=== PATIENT | male | born 1945 | race Caucasian/White ===

== ENCOUNTER 2020-04-19 09:02 | Emergency (ER) | payer MEDICARE, SELFPAY ==
--- NOTE | ~2020-04-19 | XR_ITS ---
XR chest 2V 04/19/2020 09:58 Indication: Syncope Procedure: AP and lateral views of the chest Comparison: Comparison to multiple prior studies sequentially, with oldest reviewed study dated 09/2012. Findings: Coarse interstitial changes of the lung periphery have progressed, likely pulmonary fibrosi s. No acute focal pneumonia, pleural effusion, edema or pneumothorax. No acute osseous abnormality. Impression: 1: Coarse interstitial changes primarily affecting the lung bases and periphery, likely pulmonary fib rosis. Reviewed, dictated and finalized at location B. Impression: 1: Coarse interstitial changes primarily affecting the lung bases and periphery , likely pulmonary fibrosis.
--- NOTE | ~2020-04-19 | CT_ITS ---
EXAMINATION: CT brain wo con EXAM DATE: 04/19/2020 09:57 INDICATION: Syncope. TECHNIQUE: Spiral CT of the head was performed without contrast. Axial, coronal and sagittal images were reviewed. The dose-length product (DLP) for this examination was 605.33 mGy-cm. The exposure w as tailored according to patient size, and iterative reconstruction (ASIR) was used as additional dos e reduction technique. There is no prior study for comparison. FINDINGS: There is no acute intraparenchymal hemorrhage. No evidence of intraparenchymal brain mass lesion. No evidence of acute infarction. Please note that initial head CT has limited sensitivity f or small or acute infarctions. There is mild periventricular and subcortical hypodensity, nonspecific but probably related to small vessel ischemic disease. There is moderate prominence of the sulci a nd ventricles related to cerebral atrophy. There is intracranial carotid arteriosclerosis. There a re no extra-axial collections. There is no mass effect or midline shift. Patient has had right-side d ocular lens surgery. Soft tissue is unremarkable. The visualized sinuses and mastoid air cells ar e well aerated. IMPRESSION: 1. No acute intracranial findings. 2. Chronic age related findings. Reviewed, dictated and finalized at location A.
[2020-04-19 09:08] VITALS: BP 120/74; PULSE 89; PULSE 93; RESP 18; TEMP 38; O2SAT 98
--- NOTE | 2020-04-19 09:20 | ECG_ITS ---
Measurements Intervals [place] Rate: 87 P: 31 [place]: 169 QRS: -21 QRSD: 93 T: -7 QT: 356 QTc: 430 Interpretive Statements SINUS RHYTHM VOLTAGE CRITERIA FOR LVH MINIMAL Q WAVES- HIGH LATERAL LEADS BORDERLINE ST-T WAVE ABNORMALITY- INFERIOR LEADS BORDERLINE ECG Electronically Signed On 04-19-2020 10:02:40 CDT by Anton Sorensen D.O.
[2020-04-19 09:42] LABS: Hematocrit 42.1 % (37.0-46.0); Hemoglobin 13.8 g/dL (12.4-15.3); Mean Corpuscular HGB Conc 32.8 g/dL (32.0-36.0); Mean Corpuscular Volume 100.7 fL (78.0-102.0); Platelet Count Result 161 K/mm3 (150-420); Red Blood Count 4.18 M/mm3 (4.70-6.10); Red Cell Distribution Width 12.9 % (11.6-14.4); White Blood Count 7.1 K/mm3 (4.8-10.8)
[2020-04-19] MEDS: SODIUM CHLORIDE 0.9% IV 1,000 ML 999 ML IV CONT (10:04)
[2020-04-19 10:05] LABS: Lactic Acid Reflex 1.5 mmol/L (0.4-2.0)
[2020-04-19 10:06] LABS: Alanine Aminotransferase 33 U/L (16-63); Albumin Level 3.7 g/dL (3.4-5.0); Alkaline Phosphatase 87 U/L (46-116); Anion Gap 6 mmol/L (8-16); Aspartate Amino Transferase 19 U/L (15-37); Bilirubin,Total 0.5 mg/dL (0.00-1.00); Blood Urea Nitrogen 9 mg/dL (7-18); Calcium 8.4 mg/dL (8.5-10.1); Carbon Dioxide 28 mmol/L (21-32); Chloride 105 mmol/L (98-108); Estimated CRCL calculation 52 ml/min; Estimated Glomerular Filt Rate > 60; Glucose 128 mg/dL (70-99); Osmolality Calculated 288 mOsm/kg (285-295); Potassium 3.9 mmol/L (3.5-5.1); Sodium 139 mmol/L (136-145); Thyroid Stimulating Hormone 0.32 uIU/mL (0.36-3.74); Total Protein 6.9 g/dL (6.4-8.2); Troponin I < 0.02 ng/mL (0.00-0.056)
[2020-04-19 10:17] LABS: Add Urine Microscopic? NO; Appearance Urine Clear (Clear); Bilirubin Urine Negative (Negative); Blood Urine Negative (Negative); Color Urine Yellow (Yellow); Glucose Urine UA Negative (Negative); Ketones Urine Negative (Negative); Leukocyte Esterase Ur Negative (Negative); Nitrate Urine Negative (Negative); Protein Urine Negative (Negative); Urobilinogen Urine 0.2 mg/dL (0.2-1.0); pH Urine 7.5 (5.0-8.0)
--- NOTE | 2020-04-19 10:30 | PC.NURSE ---
erp at bedside discussing test results and plan of care.
--- NOTE | 2020-04-19 10:31 | ED.SYNCOPE ---
HPI - Syncope General Chief Complaint: Syncope Stated Complaint: ambulance Source: patient and family History of Present Illness HPI narrative: This is a 74-year-old gentleman presents with a syncopal episode that occurred earlier this morning witnessed his lasting [id number] with no prodrome no headaches no formal history of seizures. Patient has a history of hyperlipidemia, BPH currently on finasteride. There was no seizure activity no loss of bowel or bladder function. Patient had no headaches no neck stiffness no chest pain or shortness of breath no abdominal pain no dysuria. MD complaint: loss of consciousness Onset (ago): minute(s) Duration of episode: 1 -: minutes(s) Prodromal symptoms: none Witnessed: Yes - by Bystander Context: getting out of bed Injuries sustained associated with event: none Current symptoms: none Treatments prior to arrival: none and IV fluids Related Data Home Medications Medication Instructions Recorded Confirmed aspirin 81 mg PO DAILY 04/19/20 04/19/20 atorvastatin 40 mg PO DAILY 04/19/20 04/19/20 diazepam 5 mg PO TID PRN 04/19/20 04/19/20 diclofenac sodium 75 mg PO BID 04/19/20 04/19/20 finasteride 5 mg PO DAILY 04/19/20 04/19/20 levothyroxine [Synthroid] 125 mcg PO DAILY 04/19/20 04/19/20 pantoprazole 40 mg PO DAILY 04/19/20 04/19/20 primidone 100 mg PO TID 04/19/20 04/19/20 terazosin 2 mg PO HS 04/19/20 04/19/20 Allergies Allergy/AdvReac Type Severity Reaction Status Date / Time No Known Allergies Allergy Verified 04/19/20 09:21 Review of Systems Review of Systems: All systems reviewed & are unremarkable except as noted in HPI and below PMFSH Past Medical History Medical History BPH (benign prostatic hyperplasia) HLD (hyperlipidemia) Exam Const: General: no acute distress Orientation/consciousness: patient oriented x3 HENMT: Head: normal to inspection Eyes: Conjunctivae: conjunctivae normal Pupils: Equal, round and reactive pupils present EOM: EOMs intact bilaterally Neck: Neck: normal visual inspection, no lymphadenopathy and no meningeal signs Chest: Chest palpation & inspection: normal inspection of the chest Resp: Effort & Inspection: normal respiratory effort Auscultation: clear to auscultation bilaterally Cardio: Rate: regular rate Rhythm: regular rhythm GI: Auscultation: normal bowel sounds : Testes: Testes normal Urinary Catheter: Urinary Catheter: urine clear Back/Spine/Pelvis: Back: no CVA tenderness Skin: General skin exam: normal color Rashes: no rashes Neuro: General: patient oriented x3, moves all extremities, no meningeal signs and no focal motor deficits Extrem: General: normal to inspection and no pedal edema Psych: Appearance: grossly normal Mental Status: mental status grossly normal Affect: normal affect Attitude: cooperative Thought content: Yes Normal thought content present Course Course Emergency Course: reassessment of patient currently stable no orthostatic findings blood pressure is stable with no headaches no nausea vomiting no blurry vision. Patient received some L of fluids, talk to family about follow-up primary care physician. Vital Signs Vital signs: Vital Signs Temperature 38.0 C H 04/19/20 09:08 Pulse Rate 89 04/19/20 09:08 Respiratory Rate 18 04/19/20 09:08 Blood Pressure 120/74 04/19/20 09:08 Pulse Oximetry 98 04/19/20 09:08 Temperature 38.0 C H 04/19/20 09:08 Pulse Rate 93 04/19/20 09:08 Respiratory Rate 18 04/19/20 09:08 Blood Pressure 120/74 04/19/20 09:08 Pulse Oximetry 98 04/19/20 09:08 MDM - Syncope Lab Data Result diagrams: 04/19/20 09:34 04/19/20 09:34 Labs: Lab Results 04/19/20 04/19/20 04/19/20 Range/Units 09:20 09:34 09:34 WBC 7.1 (4.8-10.8) K/mm3 RBC 4.18 L (4.70-6.10) M/mm3 Hgb 13.8 (12.4-15.3) g/dL Hct 42.1 (37.0-46.0
[2020-04-19 10:34] VITALS: BP 151/79; PULSE 88; RESP 16; TEMP 36.8; O2SAT 98
[2020-04-20 12:28] LABS: SARS-CoV-2 RNA PCR Negative
== END 2020-04-19 10:58 | disposition home or self-care (01) ==
PROVIDERS: Emergency Provider Emergency Medicine; PCP Internal Medicine
DX: R55 Syncope and collapse (principal); E78.5 Hyperlipidemia, unspecified
CPT/HCPCS: 36415; 70450; 71046; 80053; 81003; 83605; 84443; 84484; 85027; 87040; 87635; 93005; 96360; 99283; 99284; C9803; J7030; U0003

== ENCOUNTER 2020-04-23 11:43 | Outpatient (CLI) | payer MEDICARE, SELFPAY ==
[2020-04-23 11:58] LABS: Hematocrit 41.5 % (37.0-46.0); Hemoglobin 13.5 g/dL (12.4-15.3); Mean Corpuscular HGB Conc 32.5 g/dL (32.0-36.0); Mean Corpuscular Hemoglobin 32.5 pg (27.0-31.0); Mean Platelet Volume 8.3 fl (8.7-11.0); Platelet Count Result 190 K/mm3 (150-420); Red Blood Count 4.15 M/mm3 (4.70-6.10); Red Cell Distribution Width 12.8 % (11.6-14.4); White Blood Count 7.3 K/mm3 (4.8-10.8)
[2020-04-23 12:45] LABS: Alanine Aminotransferase 28 U/L (16-63); Albumin Level 3.7 g/dL (3.4-5.0); Alkaline Phosphatase 84 U/L (46-116); Anion Gap 9 mmol/L (8-16); Aspartate Amino Transferase 19 U/L (15-37); Bilirubin,Total 0.3 mg/dL (0.00-1.00); Blood Urea Nitrogen 8 mg/dL (7-18); Calcium 8.7 mg/dL (8.5-10.1); Carbon Dioxide 29 mmol/L (21-32); Chloride 103 mmol/L (98-108); Estimated Glomerular Filt Rate > 60; Glucose 158 mg/dL (70-99); Osmolality Calculated 293 mOsm/kg (285-295); Sodium 141 mmol/L (136-145); Total Protein 6.9 g/dL (6.4-8.2)
== END 2020-04-23 11:44 | disposition home or self-care (01) ==
LOC: CHSLAB 11:47
PROVIDERS: PCP Internal Medicine; Visit Provider Internal Medicine
DX: R19.7 Diarrhea, unspecified (principal)
CPT/HCPCS: 36415; 80053; 85027; 87045; 87046; 87324; 87427

== ENCOUNTER 2021-11-25 09:49 | Emergency (ER) | payer MEDICARE, SELFPAY ==
--- NOTE | ~2021-11-25 | XR_ITS ---
EXAMINATION: XR chest 2V DATE: 11/25/2021 10:28 INDICATION: Shortness of breath. TECHNIQUE: Frontal and lateral views of the chest were obtained. COMPARISON: Chest 2 views 04/19/2020, neck CT 08/20/2017 FINDINGS: The lung volumes are normal. There are chronic peripheral reticular opacities in the lungs with a lower lung predominance. No pleural effusion or pneumothorax. The heart size is normal. There are surgical clips in the neck from thyroidectomy. IMPRESSION: 1. Stable chronic interstitial lung disease. Reviewed, dictated and finalized at location A.
--- NOTE | ~2021-11-25 | CT_ITS ---
EXAMINATION: CTA chest PE protocol DATE: 11/25/2021 11:44 INDICATION: Shortness of breath. TECHNIQUE: Computed tomography angiography (CTA) of the chest was performed with 100 mL Omnipaque-350 intravenous contrast timed to evaluate the pulmonary arteries. Coronal maximum intensity projection 3D-reconstructions were created by the technologist. Automated exposure control and iterative reconst ruction technique were employed. The dose-length product was 328.64 mGy-cm. COMPARISON: Chest 2 views 11/25/2021 FINDINGS: There is widespread peripheral septal thickening in the lungs with a lower lung predominanc e associated with mild groundglass opacities. No bronchiectasis. A calcified right lung nodule and ca lcified right hilar lymph node are consistent with old granulomatous disease. No pleural effusion. Th ere are changes of thyroidectomy. Cardiomegaly is noted. No pericardial effusion. There is no pulmona ry embolus. Calcifications in the spleen are consistent with old granulomatous disease. There is zora re thoracic spondylosis. IMPRESSION: 1. No pulmonary embolus. 2. Chronic interstitial lung disease in a pattern of usual interstitial pneumonia (UIP). Reviewed, dictated and finalized at location A. IMPRESSION: 1. No pulmonary embolus. 2. Chronic interstitial lung disease in a pattern of usual interstitial pneumon ia (UIP).
--- NOTE | 2021-11-25 10:10 | ECG_ITS ---
Measurements Intervals [place] Rate: 64 P: 28 CT: 206 QRS: -27 QRSD: 98 T: -13 QT: 402 QTc: 418 Interpretive Statements SINUS RHYTHM BORDERLINE LEFT AXIS DEVIATION [QRS AXIS < -20] VOLTAGE CRITERIA FOR LVH [MEETS CRITERIA IN ONE OF: R(aVL), S(V1), R(V5), R(V5/V6)+S(V1)] NO PREVIOUS ECG AVAILABLE FOR COMPARISON Electronically Signed On 11-25-2021 16:59:06 CDT by Dave Arreola M.D.
[2021-11-25 10:14] VITALS: BP 137/80; PULSE 72; RESP 20; TEMP 36.7; O2SAT 99
--- NOTE | 2021-11-25 10:18 | ED.SOB ---
HPI - SOB/Dyspnea General Chief Complaint: Shortness of Breath/Dyspnea Stated Complaint: SOB, pain in legs and back, shaky Source: patient and family Mode of arrival: ambulatory Limitations: no limitations History of Present Illness HPI Narrative: this is a 76-year-old gentleman with history of central tremors had recently started as medication from his primary care physician that was discontinued because of 3 week episode of diarrhea, the diarrhea has improved over the last 2 to 3 days after he discontinued the medication for the tremors. The patient presents with shortness of breath satting 99% room air no history of asthma or COPD no chest pain no abdominal pain no dysuria no flank pain no fever chills. MD elicited complaint: shortness of breath Onset (ago): hour(s) Timing: constant Severity: mild Exacerbating factors: nothing Relieving factors: nothing Related Data Home Medications Medication Instructions Recorded Confirmed atorvastatin 40 mg PO DAILY 11/25/21 11/25/21 diazepam 5 mg PO DAILY PRN 11/25/21 11/25/21 finasteride 5 mg PO DAILY 11/25/21 11/25/21 levothyroxine 125 mcg PO DAILY 11/25/21 11/25/21 pantoprazole 40 mg PO DAILY 11/25/21 11/25/21 primidone 50 mg PO TID PRN 11/25/21 11/25/21 sertraline 100 mg PO DAILY 11/25/21 11/25/21 tamsulosin 0.4 mg PO DAILY 11/25/21 11/25/21 Allergies Allergy/AdvReac Type Severity Reaction Status Date / Time No Known Allergies Allergy Verified 11/25/21 10:29 Review of Systems Review of Systems: All systems reviewed & are unremarkable except as noted in HPI and below PMFSH Past Medical History Medical History Anxiety Tremor Exam Const: General: no acute distress Orientation/consciousness: patient oriented x3 HENMT: Head: normal to inspection Eyes: Conjunctivae: conjunctivae normal Pupils: Equal, round and reactive pupils present Neck: Neck: normal visual inspection, no lymphadenopathy and no meningeal signs Chest: Chest palpation & inspection: normal inspection of the chest Resp: Effort & Inspection: normal respiratory effort Auscultation: clear to auscultation bilaterally Cardio: Rate: regular rate Rhythm: regular rhythm GI: GI Palp: Yes Soft to palpation Percussion: Yes normal to percussion : Testes: Testes normal Urinary Catheter: Urinary Catheter: patent and draining Back/Spine/Pelvis: Back: no CVA tenderness Skin: Rashes: no rashes Neuro: General: patient oriented x3, moves all extremities, no meningeal signs and no focal motor deficits Extrem: General: normal to inspection and no pedal edema Psych: Mental Status: mental status grossly normal Affect: Anxious affect present Course Course Emergency Course: patient had chest x-ray that was reviewed as well as an EKG and blood work, patient with episodes of diarrhea will start IV and give the patient IV fluids, labs reviewed with patient and family. Patient appears anxious and will give a dose of Xanax. Critical Care Time Critical Care Time Critical Care Time: No Discharge Plan Discharge Clinical Impression: Anxiety Patient Disposition: Home, Self-Care Condition: Stable Instructions: Antibiotic Form, Anxiety (ED) Additional Instructions: follow-up with primary care physician within 1 week further evaluation and treatment, can take medication as needed. Prescriptions: New alprazolam [Xanax] 0.5 mg tablet 0.5 mg PO TID PRN (Reason: anxiety) Qty: 20 RF: 0 No Action atorvastatin 40 mg tablet 40 mg PO DAILY RF: 0 primidone 50 mg tablet 50 mg PO TID PRN (Reason: restless legs) RF: 0 sertraline 100 mg tablet 100 mg PO DAILY RF: 0 tamsulosin 0.4 mg capsule 0.4 mg PO DAILY RF: 0 pantoprazole 40 mg tablet,delayed release (DR/EC) 40 mg PO DAILY RF: 0 levothyroxine 125 mcg tablet 125 mcg PO DAILY RF: 0 finasteride 5 mg tablet 5 mg PO DAILY RF: 0 diazepam 5 m
[2021-11-25 10:35] LABS: Basophils Absolute Auto 0.03 K/mm3 (0.00-0.10); Basophils Percent Auto 0.4 % (0.0-1.0); Eosinophils Absolute Auto 0.08 K/mm3 (0.02-0.50); Eosinophils Percent Auto 1.1 % (1.0-6.0); Hemoglobin 13.3 g/dL (12.4-15.3); Immature Granulocyte Absolute 0.05 K/mm3 (0.00-0.00); Immature Granulocyte Percent A 0.7 % (0.0-0.0); Lymphocytes Absolute Auto 1.65 K/mm3 (1.10-4.50); Lymphocytes Percent Auto 21.7 % (18.0-42.0); Mean Corpuscular HGB Conc 34.1 g/dL (32.0-36.0); Mean Corpuscular Hemoglobin 33.1 pg (27.0-31.0); Monocytes Absolute Auto 0.72 K/mm3 (0.10-0.90); Monocytes Percent Auto 9.5 % (2.0-11.0); Neutrophils Absolute Auto 5.1 K/mm3 (1.7-7.2); Neutrophils Percent Auto 66.6 % (50.0-70.0); Platelet Count Result 226 K/mm3 (150-420); Red Blood Count 4.02 M/mm3 (4.70-6.10); Red Cell Distribution Width 12.6 % (11.6-14.4); White Blood Count 7.6 K/mm3 (4.8-10.8)
[2021-11-25] MEDS: ALPRAZolam (*CRX) 0.5 MG TABLET PO (10:39)
[2021-11-25] MEDS: SODIUM CHLORIDE 0.9% IV 1,000 ML 999 ML IV CONT (10:39)
[2021-11-25 10:51] LABS: D Dimer 0.75 mg/L (0.19-0.50)
[2021-11-25 11:00] LABS: Alanine Aminotransferase 36 U/L (16-63); Albumin Level 3.8 g/dL (3.4-5.0); Alkaline Phosphatase 80 U/L (46-116); Anion Gap 10 mmol/L (8-16); Aspartate Amino Transferase 19 U/L (15-37); Bilirubin,Total 0.4 mg/dL (0.00-1.00); Blood Urea Nitrogen 11 mg/dL (7-18); Calcium 9.4 mg/dL (8.5-10.1); Carbon Dioxide 25 mmol/L (21-32); Chloride 98 mmol/L (98-108); Estimated CRCL calculation 54 ml/min; Estimated Glomerular Filt Rate > 60; Glucose 97 mg/dL (70-99); Osmolality Calculated 275 mOsm/kg (285-295); Potassium 4.1 mmol/L (3.5-5.1); Sodium 133 mmol/L (136-145); Total Protein 7.2 g/dL (6.4-8.2); Troponin I 6.5 ng/L (0.00-60.4)
[2021-11-25 12:32] VITALS: BP 140/81; PULSE 73; RESP 20; TEMP 36.7; O2SAT 98
== END 2021-11-25 12:35 | disposition home or self-care (01) ==
PROVIDERS: Emergency Provider Emergency Medicine; PCP Internal Medicine
DX: F41.9 Anxiety disorder, unspecified (principal)
CPT/HCPCS: 36415; 71046; 71275; 80053; 84484; 85025; 85380; 93005; 96360; 99284; A9270; J7030; Q9967

== ENCOUNTER 2023-05-11 15:22 | Outpatient (CLI) | payer MEDICARE, SELFPAY ==
--- NOTE | ~2023-05-11 | XR_ITS ---
EXAMINATION: XR chest 2V Exam Date/Time: 05/11/2023 15:40 CDT HISTORY: SOB X 1 MONTH Comparison: 11/25/2021; CTPA 11/25/2021. RESULT: Lines, tubes, and devices: None. Lungs and pleura: Moderate peripheral reticular opacities. No focal consolidation, pleural effusion, or pneumothorax. Cardiomediastinal silhouette: Stable. Other: No acute osseous or upper abdominal finding. IMPRESSION: Chronic interstitial lung disease. Reviewed, dictated and finalized at location K.
--- NOTE | ~2023-05-11 | CT_ITS ---
EXAMINATION: CTA chest PE protocol DATE: 05/11/2023 17:12 INDICATION: SOB / + D-Dimer TECHNIQUE: Computed tomography angiography (CTA) of the chest was performed with 100 mL Omnipaque-350 intravenous contrast timed to evaluate the pulmonary arteries. Coronal maximum intensity projection 3D-reconstructions were created by the technologist. The dose-length product (DLP) was 420.05 mGy-cm. Automated exposure control and iterative reconstruction technique were employed. COMPARISON: X-ray chest, same date; CTPA 11/25/2021. FINDINGS: Lung parenchyma and airways: Lobular 5.4 x 3.4 cm soft tissue mass in the medial left upper lobe. 8 a nd 9 mm peripheral nodules in the right lower lobe. Moderate peripheral reticulation. Pleura: Unremarkable. Thoracic inlet, axillae and chest wall: Mild symmetric gynecomastia. Thoracic aorta: Normal. Mediastinum: Calcified right hilar and mediastinal lymph nodes. Dilated central pulmonary arteries as can be seen with pulmonary arterial hypertension. Heart and pericardium: Normal. Coronary artery calcifications: Mild. Upper abdomen: No significant finding. Bones: No acute osseous finding. Pulmonary arteries: Study quality: Adequate. No pulmonary emboli detected. IMPRESSION: No CT evidence of acute pulmonary embolus. 5.4 cm medial left upper lobe mass concerning for neoplastic disease. Multiple pulmonary nodules also noted. UIP pattern of chronic interstitial lung disease. Reviewed, dictated and finalized at location K.
--- NOTE | 2023-05-11 15:36 | ECG_ITS ---
Measurements Intervals [place] Rate: 60 P: 47 MT: 222 QRS: -23 QRSD: 97 T: 14 QT: 397 QTc: 397 Interpretive Statements SINUS RHYTHM WITH FIRST DEGREE AV BLOCK BORDERLINE LEFT AXIS DEVIATION [QRS AXIS < -20] VOLTAGE CRITERIA FOR LVH [MEETS CRITERIA IN ONE OF: R(aVL), S(V1), R(V5), R(V5/V6)+S(V1)] ABNORMAL ECG COMPARED TO ECG 04/19/2020 09:12:41 FIRST DEGREE AV BLOCK NOW PRESENT Electronically Signed On 05-13-2023 10:25:49 CDT by Tho Sandoval M.D.
[2023-05-11 15:50] LABS: Basophils Absolute Auto 0.04 K/mm3 (0.00-0.10); Basophils Percent Auto 0.5 % (0.0-1.0); Eosinophils Absolute Auto 0.11 K/mm3 (0.02-0.50); Eosinophils Percent Auto 1.3 % (1.0-6.0); Hematocrit 40.8 % (37.0-46.0); Hemoglobin 13.2 g/dL (12.4-15.3); Immature Granulocyte Absolute 0.05 K/mm3 (0.00-0.00); Immature Granulocyte Percent A 0.6 % (0.0-0.0); Lymphocytes Absolute Auto 1.46 K/mm3 (1.10-4.50); Lymphocytes Percent Auto 17.7 % (18.0-42.0); Mean Corpuscular HGB Conc 32.4 g/dL (32.0-36.0); Mean Corpuscular Hemoglobin 32.4 pg (27.0-31.0); Mean Platelet Volume 8.6 fl (8.7-11.0); Monocytes Percent Auto 7.3 % (2.0-11.0); Neutrophils Percent Auto 72.6 % (50.0-70.0); Platelet Count Result 230 K/mm3 (150-420); Red Blood Count 4.08 M/mm3 (4.70-6.10); Red Cell Distribution Width 13.2 % (11.6-14.4); White Blood Count 8.3 K/mm3 (4.8-10.8)
[2023-05-11 16:04] LABS: D Dimer 0.81 mg/L (0.19-0.50)
[2023-05-11 16:12] LABS: Alanine Aminotransferase 25 U/L (16-63); Albumin Level 3.3 g/dL (3.4-5.0); Alkaline Phosphatase 92 U/L (46-116); Anion Gap 12 mmol/L (8-16); Aspartate Amino Transferase 14 U/L (15-37); Bilirubin,Total 0.3 mg/dL (0.00-1.00); Blood Urea Nitrogen 16 mg/dL (7-18); Carbon Dioxide 23 mmol/L (21-32); Chloride 102 mmol/L (98-108); Creatine Kinase 57 U/L (39-308); Estimated Glomerular Filt Rate > 60; Glucose 111 mg/dL (70-99); NT Pro B Type Natriuretic Pept 510 pg/mL (0-450); Osmolality Calculated 286 mOsm/kg (285-295); Potassium 3.8 mmol/L (3.5-5.1); Sodium 137 mmol/L (136-145); Total Protein 7.2 g/dL (6.4-8.2); Troponin I 4.6 ng/L (0.00-60.4)
== END 2023-05-11 15:23 | disposition home or self-care (01) ==
PROVIDERS: PCP Internal Medicine; Visit Provider Internal Medicine
DX: R06.00 Dyspnea, unspecified (principal); R07.9 Chest pain, unspecified; R91.8 Other nonspecific abnormal finding of lung field; J84.9 Interstitial pulmonary disease, unspecified; R94.31 Abnormal electrocardiogram [ECG] [EKG]; I44.30 Unspecified atrioventricular block
CPT/HCPCS: 36415; 71046; 71275; 80053; 82550; 82553; 83880; 84484; 85025; 85380; 93005; Q9967

== ENCOUNTER 2023-05-28 07:17 | Outpatient (CLI) | payer MEDICARE, SELFPAY ==
--- NOTE | ~2023-05-28 | PE_ITS ---
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 TECHNIQUE: Blood glucose level was 110 mg/dL. 10.239 mCi of 18-fluorodeoxyglucose (18-FDG) was admini stered i.v. Low dose computed tomography (CT) images were acquired from the base of the brain to the proximal thighs for attenuation correction and anatomic localization. Positron emission tomography (P ET) images were acquired in the same distribution beginning 67 minutes after injection. Images includ ing fused PET/CT images were reconstructed in axial, coronal, and sagittal planes. Automated exposure control technique was employed. The dose-length product was 723.60mGy-cm. COMPARISON: Chest CT dated 05/21/2023 FINDINGS: Head/neck: There is symmetric increased activity in the oral cavity, lingual and palatine tonsils, submandibular glands, laryngeal muscles and ocular muscles without CT correlate, likely physiologic. No pathologic ally enlarged cervical lymphadenopathy or suspicious foci of increased FDG uptake in the visualized h ead or neck. Chest: Diffuse bilateral irregular septal line thickening with honeycombing in the periphery of both lungs w ith lower lung predominance consistent with usual interstitial pneumonia (UIP) pattern chronic inters titial lung disease. There is a 4.9 x 3.6 cm lobular FDG avid mass at the medial anterior segment of the left upper lobe which invades into the mediastinal fat. The maximal SUV is 10.1. Cardiomegaly. No pericardial effusion. Thoracic aorta is normal in caliber. Calcified right hilar and mediastinal lym ph nodes consistent with old granulomatous disease. There are few small lymph nodes which remain with in normal limits in size and without evident increased FDG uptake at the AP window. 11 x 7 mm FDG betty d though based FDG avid nodule near the posterior margin of the aorta at the level of T10 suspicious for metastatic disease. Abdomen/pelvis/proximal thighs: There is a 3.8 x 2.5 cm left paraspinal FDG avid mass at the level of T12-L1 with maximal SUV of 11.3 along the left posterior jazmin of the diaphragm likely representing a pleural deposit at the caudal-m ost aspect of the posterior sulcus. Physiologic renal accumulation and excretion of FDG activity in t he kidneys, bladder and along portions of ureters. Normal degree and heterogenous pattern of increase d uptake throughout the liver without radiologic correlate or dominant FDG avid lesion. The gallbladd er, pancreas and bilateral adrenal glands are normal. Splenic calcifications consistent with old gran ulomatous disease. Postoperative change of prior appendectomy with surgical clips along the tip the c ecum. Mild to moderate uptake scattered throughout the bowels without radiologic correlate, also like ly physiologic. Numerous diverticula along the descending and sigmoid colon without adjacent from tra ce stranding to suggest diverticulitis. Postoperative change of prior right inguinal hernia repair. L jo-ann dropped clip along the left posterior dome of the bladder. No other abnormal foci of increased FDG uptake or pathologically enlarged lymphadenopathy in the abdomen, pelvis or proximal thighs. Musculoskeletal: Severe cervical and lumbar spondylosis with moderate thoracic spondylosis. 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 No suspicious lytic, blastic or FDG avid bone lesions. IMPRESSION: 1. 4.9 x 3.6 cm lobular FDG avid mass at the anterior segment of the left upper lobe which appears to invade the anterior mediastinal fat. 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 Recommend CT-guided percutaneous biopsy of the paraspinal mass at the level of T12-L1.
[2023-05-28 07:54] LABS: Glucose Point of Care 110 mg/dl (65-105)
== END 2023-05-28 07:18 | disposition home or self-care (01) ==
PROVIDERS: PCP Internal Medicine; Visit Provider Internal Medicine
DX: D38.1 Neoplasm of uncertain behavior of trachea, bronchus and lung (principal)
CPT/HCPCS: 78815; A9552

== ENCOUNTER 2023-06-01 08:14 | Outpatient (CLI) | payer MEDICARE, SELFPAY ==
--- NOTE | 2023-06-01 08:30 | EST_ITS ---
Patient Info Name: Wayne Lau Age: 78 years : 1945 Gender: Male Ht: 69 in Wt: 156 lbs BSA: 1.86 m2 HR: 59 bpm BP: 126 / 66 mmHg Heart Rhythm: Bradycardia Technical Quality: Good Exam Date: 06/01/2023 9:29 AM Exam Location: [facility] Patient Status: Outpatient Admit Date: 06/01/2023 Staff Ordering Physician: Hiwot Marshall MD Attending Provider: Hiwot Marshall MD Exam Type: CA stress mary anne w NM Study Info A regadenoson stress test was performed. History/Risk Factors Dyslipidemia: Yes History/Risk Factors Cardiac heart failure. Malignancy. Summary 1. 1. Negative lexiscan stress test for ischemic ST changes by ECG criteria. 2. 2. Stable hemodynamics throughout the test. 3. 3. Nuclear scan to follow and will be reported separately. Please correlate with it. Protocol: LEXISCAN Stress ECG Details Stage: REST Duration (min): 5 min : 7 sec HR (bpm): 59 SBP (mmHg): 126 DBP (mmHg): 66 Stage: REST Duration (min): 6 min : 13 sec HR (bpm): 59 SBP (mmHg): 126 DBP (mmHg): 66 Stage: STAGE 1 Duration (min): 0 min : 14 sec HR (bpm): 60 SBP (mmHg): 126 DBP (mmHg): 66 Stage: RECOVERY Duration (min): 0 min : 45 sec HR (bpm): 85 SBP (mmHg): 126 DBP (mmHg): 66 Stage: RECOVERY Duration (min): 1 min : 45 sec HR (bpm): 85 SBP (mmHg): 125 DBP (mmHg): 64 Stage: RECOVERY Duration (min): 2 min : 45 sec HR (bpm): 83 SBP (mmHg): 124 DBP (mmHg): 66 Stage: RECOVERY Duration (min): 3 min : 45 sec HR (bpm): 76 SBP (mmHg): 123 DBP (mmHg): 67 Stage: RECOVERY Duration (min): 4 min : 45 sec HR (bpm): 73 SBP (mmHg): 109 DBP (mmHg): 65 Stage: RECOVERY Duration (min): 5 min : 17 sec HR (bpm): 71 SBP (mmHg): 109 DBP (mmHg): 65 Rest HR: 59 bpm Peak HR: 92 bpm Rest Sys BP: 126 mmHg Peak Sys BP: 125 mmHg Max Pred HR: 140 bpm % Max Pred HR: 66 % Target HR: 119 bpm Max RPP: 11,500 bpm*mmHg BP Response: Normal blood pressure response Termination Reason: Completed Protocol Cardiac Symptoms: None Total Time: 0 min : 14 sec Rest Desouza BP: 66 mmHg Peak Desouza BP: 64 mmHg Total Dose: 0.4 mg Resting ECG Sinus bradycardia with borderline 1st degree AV block. Occasional PVCs. Stress ECG No abnormal ST/T wave changes. Arrhythmias Occasional PVCs. Report Signatures
--- NOTE | 2023-06-01 13:35 | WPDCARIOSTRE ---
Nuclear Stress Test INDICATIONS Indications: Dyspnea PROCEDURE Procedure Performed: Myocardial Perf Spect-Multi Procedure: Patient underwent a lexiscan stress test and immediately was injected with 33 mCi of cardiolyte. Multiple tomographic images were obtained. These are of good quality. There is evidence of a small size, mild anterior perfusion defect with stress imaging. A separate resting images were obtained after patient was injected with 10.4 mCi of cardiolyte. Multiple tomographic images were obtained. These are of good quality. There is evidence of a small size, mild anterior perfusion defect with rest imaging. CONCLUSION Conclusion: 1. Myocardial perfusion imaging demonstrating a fixed small size anterior perfusion defect consistent with breast attenuation artifact. 2. No evidence of reversible ischemia. 3. Left ventriculogram demonstrates normal measured ejection fraction of 57% with no wall motion abnormalities. 4. TID score 1.04 is normal.
--- NOTE | 2023-06-01 14:49 | ECHO_ITS ---
Patient Info Name: Wayne Lau Age: 78 years : 1945 Gender: Male Ht: 69 in Wt: 154 lbs BSA: 1.85 m2 HR: 58 bpm BP: 113 / 58 mmHg Heart Rhythm: Sinus Rhythm Technical Quality: Good Exam Date: 06/01/2023 2:38 PM Exam Location: [facility] Patient Status: Outpatient Admit Date: 06/01/2023 Staff Ordering Physician: Hiwot Marshall MD Turf [employer] Worker: Ulises Saldivar RDCS Attending Provider: Hiwot Marshall MD Referring Physician: Rolando MIRZA; Exam Type: CA echo doppler color flow Study Info Indications - DYSPNEA, CHF, LUNG MASS Complete two-dimensional, color flow and Doppler transthoracic echocardiogram is performed. History/Risk Factors Dyslipidemia: Yes Summary 1. Complete two-dimensional, color flow and Doppler transthoracic echocardiogram is performed. 2. Left ventricular chamber dimension is normal. 3. Left ventricular systolic function is normal, estimated at 55-60%. 4. There is mild concentric increased left ventricular wall thickness. 5. The left ventricular diastolic function is grade I diastolic dysfunction. 6. E/e' 5 is not elevated. 7. Left atrial chamber dimension is mildly enlarged. 8. There is mild aortic valve sclerosis. 9. There is mild aortic valve regurgitation. 10. There is mild mitral valve regurgitation. 11. There is mild tricuspid valve regurgitation. 12. No pulmonary hypertension, estimated pulmonary arterial systolic pressure is 34 mmHg. 13. There is trace pulmonic regurgitation. Left Ventricle E/e' 5 is not elevated. Left ventricular chamber dimension is normal. Left ventricular systolic function is normal, estimated at 55-60%. There is mild concentric increased left ventricular wall thickness. The left ventricular diastolic function is grade I diastolic dysfunction. Right Ventricle Right ventricular chamber dimension is normal. Right ventricular systolic function is normal. Left Atria Left atrial chamber dimension is mildly enlarged. Right Atria Right atrial chamber dimension is normal. Aortic Valve The aortic valve is trileaflet. There is mild aortic valve sclerosis. There is no aortic valve stenosis. There is mild aortic valve regurgitation. Pulmonic Valve There is trace pulmonic regurgitation. Mitral Valve There is no mitral valve stenosis. There is mild mitral valve regurgitation. Tricuspid Valve There is mild tricuspid valve regurgitation. No pulmonary hypertension, estimated pulmonary arterial systolic pressure is 34 mmHg. Pericardium/Pleural There is no pericardial effusion. Inferior Vena Cava Normal inferior vena cava with >50% collapse upon inspiration consistent with normal right atrial pressure, 5 mmHg. Aorta The aortic root size at the sinus of Valsalva is normal. Left Ventricular Outflow Tract Name Value Normal LVOT 2D LVOT Diameter 2.2 cm LVOT Doppler LVOT Peak Velocity 78 cm/s LVOT Peak Gradient 2 mmHg LVOT Mean Gradient 1 mmHg LVOT VTI 17 cm LVOT VTI/AV VTI Ratio 0.7 LVOT Stroke Volume 61 ml Pulmonic Valve
== END 2023-06-01 08:15 | disposition home or self-care (01) ==
PROVIDERS: PCP Internal Medicine; Visit Provider Internal Medicine
DX: R06.00 Dyspnea, unspecified (principal); R91.8 Other nonspecific abnormal finding of lung field; I50.9 Heart failure, unspecified; I08.3 Combined rheumatic disorders of mitral, aortic and tricuspid valves
CPT/HCPCS: 78452; 93017; 93306; A9502

== ENCOUNTER 2023-06-02 08:20 | Outpatient (CLI) | payer MEDICARE, SELFPAY | END 2023-06-02 08:21 | disposition home or self-care (01) | LOC: CHSCARD 08:22 | PROVIDERS: PCP Internal Medicine; Visit Provider Internal Medicine | DX: R06.00 Dyspnea, unspecified (principal); R91.8 Other nonspecific abnormal finding of lung field; I50.9 Heart failure, unspecified | CPT/HCPCS: 94060; 94726; 94729; 95012 ==

== ENCOUNTER 2023-06-23 10:08 | Outpatient (CLI) | payer MEDICARE, SELFPAY ==
--- NOTE | ~2023-06-23 | XR_ITS ---
XR chest 2V 06/23/2023 10:36 Indication: History of lung cancer. Procedure: 2 view chest Comparison: Comparison to multiple prior studies sequentially, with oldest reviewed study dated 06/04. Findings: Heart size normal. Coarse interstitial changes are present peripherally, consistent with ch ronic interstitial lung disease. There is evidence for chronic granulomatous disease in the mediastin um. Possible small left effusion. Impression: 1: Possible small left effusion. 2: Chronic interstitial lung disease. Reviewed, dictated and finalized at location L. IRATORY MEDICINE PHYSICIAN Impression: 1: Possible small left effusion. 2: Chronic interstitial lung disease.
--- NOTE | ~2023-06-23 | CT_ITS ---
EXAMINATION: CT cervical spine wo con DATE: 06/23/2023 10:27 INDICATION: Left flank pain. TECHNIQUE: Computed tomography (CT) of the cervical spine was performed without intravenous contrast. Automated exposure control and iterative reconstruction technique were employed. The dose-length pro duct was 202.88 mGy-cm. COMPARISON: None FINDINGS: There are changes of thyroidectomy. There is 8 degrees dextrocurvature of cervical spine. T here is 2 mm anterolisthesis of C3 on C4. There is a hemangioma in C6 vertebral body. There is mildly decreased disc height at C3-C4 and severely decreased disc height at C4-C5, C5-C6, and C6-C7. The fo llowing disc levels are specifically discussed: C2-C3: There is no uncovertebral joint osteoarthritis. There is mild right and severe left facet join t osteoarthritis. There is no neural foraminal stenosis. There is no central canal stenosis. C3-C4: There is mild right and severe left uncovertebral joint osteoarthritis. There is severe bilate ral facet joint osteoarthritis. There is mild right and moderate left neural foraminal stenosis. Ther e is no central canal stenosis. C4-C5: There is moderate right and severe left uncovertebral joint osteoarthritis. There is severe bi lateral facet joint osteoarthritis. There is mild bilateral neural foraminal stenosis. There is mild central canal stenosis. C5-C6: There is mild right and severe left uncovertebral joint osteoarthritis. There is moderate bila teral facet joint osteoarthritis. There is moderate left neural foraminal stenosis. There is mild devendra tral canal stenosis. C6-C7: There is severe right and mild left uncovertebral joint osteoarthritis. There is mild right an d severe left facet joint osteoarthritis. There is mild bilateral neural foraminal stenosis. There is mild central canal stenosis. C7-T1: There is no uncovertebral joint osteoarthritis. There is moderate and severe left facet joint osteoarthritis. There is mild left neural foraminal stenosis. There is no central canal stenosis. IMPRESSION: 1. Severe cervical spondylosis. Reviewed, dictated and finalized at location E. LANE WOODWORKER
== END 2023-06-23 10:09 | disposition home or self-care (01) ==
PROVIDERS: PCP Internal Medicine; Visit Provider Internal Medicine
DX: M54.12 Radiculopathy, cervical region (principal); Z85.118 Personal history of other malignant neoplasm of bronchus and lung; J84.9 Interstitial pulmonary disease, unspecified; M43.02 Spondylolysis, cervical region
CPT/HCPCS: 71046; 72125

== ENCOUNTER 2024-02-15 10:56 | Outpatient (CLI) | payer MEDICARE, SELFPAY ==
--- NOTE | ~2024-02-15 | XR_ITS ---
XR hip BI 2V w AP pelvis Ordering provider: Hiwot Marshall MD History: . LUNG CANCER ON CHEMO/AUTE PAIN LOWER BACK/HIP,LT>RT . Comparison: None. FINDINGS: BONES: No acute fracture or dislocation. HIP JOINT SPACES: Normal. SACROILIAC JOINT SPACES/LUMBAR SPINE: The sacroiliac joint spaces are normal. Mild degenerative cheng es of the visualized lower lumbar spine. PUBIC SYMPHYSIS: Mild pubic symphysitis. SOFT TISSUES: Normal. IMPRESSION: No acute osseous abnormality of the bilateral hips and pelvis. Reviewed, dictated and finalized at location A.
--- NOTE | ~2024-02-15 | XR_ITS ---
XR shoulder LT min 2V Ordering provider: Hiwot Marshall MD History: . LUNG CANCER ON CHEMO/AUTE PAIN LEFT SHOULDER . Comparison: None. FINDINGS: BONES: No acute fracture or dislocation. JOINT SPACES: The acromioclavicular joint shows osteoarthritic changes. The glenohumeral joint shows mild osteoarthritic changes. SOFT TISSUES: Ossification of the insertion of the supraspinatous muscle. IMPRESSION: No acute osseous abnormality left shoulder. Reviewed, dictated and finalized at location A.
--- NOTE | ~2024-02-15 | XR_ITS ---
3 VIEWS LUMBAR SPINE Ordering provider: Hiwot Marshall MD History: . LUNG CANCER ON CHEMO/AUTE PAIN LOWER BACK/HIP . Comparison: None. FINDINGS: VERTEBRAL BODIES:Degenerative changes of the spine. No visible fracture. Minimal anterolisthesis at the level of L5-S1.. DISK SPACES: Narrowing of the disc L2-L3, L3-L4, L4-L5 and L5-S1. Multilevel facet joint disease. SOFT TISSUES: Atherosclerotic changes of the aorta. IMPRESSION: No acute osseous abnormality lumbar spine. Anterolisthesis at the level of L5-S1. Multilevel degenerative disc disease. Reviewed, dictated and finalized at location A.
--- NOTE | ~2024-02-15 | XR_ITS ---
EXAMINATION: XR chest 2V DATE: 02/15/2024 11:26 INDICATION: Lung cancer currently on chemotherapy presenting with shortness of breath and weakness TECHNIQUE: PA and lateral views of the chest were obtained. COMPARISON: Chest radiograph dated 06/23/[address] dated 05/21/2023 FINDINGS: Right internal jugular central venous port catheter with distal tip in the caudal superior vena cava. Decreased lung volumes particularly on the left where there is elevation the left hemidiaphragm. 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 No more dense airspace consolidation, pleural effusion or pneumothorax. Heart size is normal. Calc ified right hilar lymph nodes consistent with old granulomatous disease. IMPRESSION: 1. Decreased lung volumes with stable appearance of a diffuse peripheral interstitial pattern consist ent with chronic interstitial lung disease with UIP pattern on prior CT. Reviewed, dictated and finalized at location A. IMPRESSION: 1. Decreased lung volumes with stable appearance of a diffuse peripheral inters titial pattern consistent with chronic interstitial lung disease with UIP patte rn on prior CT.
== END 2024-02-15 10:57 | disposition home or self-care (01) ==
PROVIDERS: PCP Internal Medicine; Visit Provider Internal Medicine
DX: C34.90 Malignant neoplasm of unspecified part of unspecified bronchus or lung (principal); M54.50 Low back pain, unspecified; M25.552 Pain in left hip; M25.551 Pain in right hip; M51.36 Other intervertebral disc degeneration, lumbar region; M43.06 Spondylolysis, lumbar region
CPT/HCPCS: 71046; 72100; 73030; 73521